=== PATIENT | female | born 1980 | race Caucasian/White ===

== ENCOUNTER 2018-12-20 17:14 | Emergency (ER) | payer OTHER ==
[~2018-12-20] VITALS: Ht 165.1 cm; Wt 127.9 kg
[2018-12-20] MEDS ORDERED: D-50CAP PO (18:29)
[2018-12-20] MEDS ORDERED: LISI10TA15 PO (18:29)
[2018-12-20] MEDS ORDERED: OXYC10TA3 PO (18:29)
[2018-12-20] MEDS ORDERED: TAMS1CAP17 PO (18:29)
[2018-12-20] MEDS ORDERED: MYRB25TA PO (18:29)
[2018-12-20] MEDS ORDERED: LORA1TAB12 PO (18:29)
[2018-12-20] MEDS ORDERED: SERO1TAB3 PO (18:29)
[2018-12-20 19:45] LABS: BASO # 0.1 10^3/uL (0.0-0.2); BASO % 0.5 % (0.0-1.0); EOS # 0.2 10^3/uL (0.0-0.50); EOS % 2.2 % (0.0-3.0); HEMATOCRIT 37.9 % (36.0-47.0); HEMOGLOBIN 13.1 g/dl (12.0-15.5); LYMPH % 18.8 % (24.0-44.0); MEAN CORPUSCULAR HGB CONC 34.6 g/dl (32.0-36.5); MEAN CORPUSCULAR VOLUME 92.7 fl (80.0-96.0); MONO # 0.8 10^3/uL (0.0-0.8); MONO % 7.5 % (0.0-5.0); NEUTROPHILS # 7.5 10^3/uL (1.8-7.7); NEUTROPHILS % 70.1 % (36.0-66.0); PLATELET COUNT, AUTOMATED 322 10^3/uL (150-450); RED BLOOD COUNT 4.09 10^6/uL (4.00-5.40); WHITE BLOOD COUNT 10.7 10^3/uL (4.0-10.0)
[2018-12-20 19:59] LABS: INR 0.95; PROTHROMBIN TIME 12.4 SECONDS (11.8-14.0)
[2018-12-20 20:00] VITALS: BP 113/65
--- NOTE | 2018-12-20 20:20 | REPVR ---
EXAM: CT Chest Without Contrast EXAM DATE/TIME: 12/20/2018 7:16 PM CLINICAL HISTORY: 38 years old, female; Shortness of breath; Prior surgery; Surgery date: 3-7 days post-operative; Surgery type: Lung nodule removed; Additional info: SOB S/P open lung bx, abn cxr TECHNIQUE: Imaging protocol: Axial computed tomography images of the chest without intravenous contrast. Coronal and sagittal reformatted images were created and reviewed. 3D rendering: MIP reconstructed images were created and reviewed. Radiation optimization: All CT scans at this facility use at least one of these dose optimization techniques: automated exposure control; mA and/or kV adjustment per patient size (includes targeted exams where dose is matched to clinical indication); or iterative reconstruction. COMPARISON: CR Chest, 2 view PA, Lat 12/20/2018 6:07 PM FINDINGS: Tubes, catheters and devices: Suture lines in the right lower lobe. Lungs: Mild scattered fibro-atelectatic change, greatest on the right and particularly in the right lower lobe. Pleural space: Minimal right pleural effusion. Heart: Unremarkable. No cardiomegaly. No pericardial effusion. Aorta: Unremarkable. No aortic aneurysm. Lymph nodes: Unremarkable. No enlarged lymph nodes. Bones/joints: Osteotomies of the right 7th rib posterolaterally. Soft tissues: Minimal subcutaneous emphysema about the right posterolateral aspect of the right hemithorax with subcutaneous and intramuscular edema consistent with recent surgery. Gallbladder and bile ducts: Status post cholecystectomy. IMPRESSION: 1. 2 osteotomies of the right 7th rib posterolaterally with findings consistent with recent surgery/lung biopsy. There are underlying sutures in the right lower lobe. 2. Minimal right pleural effusion with mild scattered fibro-atelectatic change, greatest involving the right lung. 3. Status post cholecystectomy. Electronically signed by: Juan Gil On 12/20/2018 20:19:46 PM
[2018-12-20 20:24] LABS: ALBUMIN 3.2 GM/DL (3.2-5.2); ALT/SGPT 116 U/L (12-78); BILIRUBIN,DIRECT 0.2 MG/DL (0.0-0.2); BILIRUBIN,TOTAL 0.4 MG/DL (0.2-1.0); BLOOD UREA NITROGEN 14 MG/DL (7-18); CALCIUM LEVEL 8.9 MG/DL (8.5-10.1); CARBON DIOXIDE LEVEL 30 MEQ/L (21-32); CHLORIDE LEVEL 101 MEQ/L (98-107); CK-MB VALUE MASS < 1.0 NG/ML (<3.6); CPK CREATINE PHOSPHOKINASE 66 U/L (26-192); CREATININE FOR GFR 0.84 MG/DL (0.55-1.30); GLOMERULAR FILTRATION RATE > 60.0 (>60); GLUCOSE, FASTING 102 MG/DL (70-100); LIPASE 166 U/L (73-393); MB/CK RELATIVE INDEX 1.52 (< OR =4); NT-PRO BNP 6 PG/ML (<125); POTASSIUM SERUM 4.3 MEQ/L (3.5-5.1); SODIUM LEVEL 139 MEQ/L (136-145); TROPONIN I < 0.02 NG/ML (< 0.10)
--- NOTE | 2018-12-21 10:31 | ECGEPIP ---
[facility] - ED Test Date: 2018-12-20 Pat Name: RITCHIE BERG Department: Room: - Gender: Female [employer]: CT : 1980 Requested By: VICKIE Etienne Order Number: [id number] Reading MD: Dannielle Lowery Measurements Intervals [place] Rate: 76 P: 43 CT: 160 QRS: 16 QRSD: 98 T: 3 QT: 346 QTc: 391 Interpretive Statements SINUS RHYTHM NSTTW abnormalities NO PRIOR Electronically Signed on 12-21-2018 10:30:32 EDT by Dannielle Lowery
--- NOTE | 2018-12-21 10:55 | REP ---
CHEST X-RAY: TWO VIEWS. HISTORY: Dyspnea and cough. No comparison study. FINDINGS: There is blunting of the right lateral pleural angle indicating a small right pleural effusion. No definite infiltrate is seen. There appears to be some discoid atelectasis in the right base. The left lung is clear. Left pleural angles are sharp. Heart is not felt to be enlarged. There is a fracture of the right posterolateral 7th rib. This raises a question of hemothorax. IMPRESSION: Atelectasis in the right base and right pleural effusion. There is a fracture involving the right 7th rib. Question hemothorax versus parapneumonic effusion. Electronically Signed by Felice Zepeda MD 12/21/2018 07:11 P
== END 2018-12-20 20:55 | disposition home or self-care (01) ==
LOC: M ED 17:14
DX: J90 Pleural effusion, not elsewhere classified (principal); G89.18 Other acute postprocedural pain; I10 Essential (primary) hypertension; Z79.899 Other long term (current) drug therapy; Z88.1 Allergy status to other antibiotic agents; Z88.5 Allergy status to narcotic agent; Z87.891 Personal history of nicotine dependence